=== PATIENT | female | born 1985 | race American Indian/Alaskan Native ===

== ENCOUNTER 2019-09-01 11:54 | Emergency (ER) | payer SELFPAY ==
[2019-09-01] MEDS ORDERED: BUTALB/ACETAMINOPHEN/CAFFEINE TAB PO ONE (12:57)
--- NOTE | 2019-09-01 13:59 | Emergency Department Report ---
ED Headache HPI - General Chief Complaint: Headache Stated Complaint: HEADACHE, BODY PAIN Time Seen by Provider: 09/01/19 12:37 Source: patient Exam Limitations: no limitations - History of Present Illness Initial Comments: This is a 34-year-old female history of migraine headache who presents today complaining of temporal throbbing aching type headache that is been going on for the past 1 week. She rates the pain about a 5 out of 10 intensity. patient states El usually takes Benadryl and some pain medication which helps but in the past 2 days, Benadryl is not helping to relieve the pain. She denies nausea vomiting blurry vision of the injuries or trauma to the head. Timing/Duration: 1 week Quality: mild, achy, throbbing Head Injury Location: temporal Associated Symptoms: denies symptoms. denies: facial pain, nausea/vomiting, nasal congestion, sinus infection Allergies/Adverse Reactions: Allergies No Known Allergies Allergy (Unverified 02/02/15 19:38) Home Medications: Ambulatory Orders Ibuprofen [Motrin 800 MG tab] 800 mg PO Q8HR PRN #20 tablet 02/02/15 Butalb/Acetamin/Caff 50-325-40 [Fioricet 50-325-40] 2 tab PO TID #30 tablet 09/01/19 ED Review of Systems ROS: Stated complaint: HEADACHE, BODY PAIN Other details as noted in HPI Comment: All other systems reviewed and negative ED Past Medical Hx - Past Medical History Previous Medical History?: Yes Hx Psychiatric Treatment: Yes (treated with Seroquel and Zoloft) Additional medical history: Hx of depression - Surgical History Past Surgical History?: No - Social History Smoking Status: Never Smoker Substance Use Type: Alcohol - Medications Home Medications: Home Medications Medication Instructions Recorded Confirmed Last Taken Type Ibuprofen [Motrin 800 MG tab] 800 mg PO Q8HR PRN #20 tablet 02/02/15 Unknown Rx Butalb/Acetamin/Caff 50-325-40 2 tab PO TID #30 tablet 09/01/19 Unknown Rx [Fioricet 50-325-40] ED Physical Exam - General Limitations: No Limitations General appearance: alert, in no apparent distress - Head Head exam: Present: atraumatic, normocephalic - Eye Eye exam: Present: normal appearance, PERRL - ENT ENT exam: Present: mucous membranes moist - Neck Neck exam: Present: normal inspection - Respiratory Respiratory exam: Present: normal lung sounds bilaterally. Absent: respiratory distress - Cardiovascular Cardiovascular Exam: Present: regular rate, normal rhythm. Absent: systolic murmur, diastolic murmur, rubs, gallop - GI/Abdominal GI/Abdominal exam: Present: soft, normal bowel sounds - Extremities Exam Extremities exam: Present: normal inspection - Back Exam Back exam: Present: normal inspection - Neurological Exam Neurological exam: Present: alert, oriented X3 - Psychiatric Psychiatric exam: Present: normal affect, normal mood - Skin Skin exam: Present: warm, dry, intact, normal color. Absent: rash ED Course Vital Signs 09/01/19 09/01/19 12:00 13:14 Temperature 98.2 F Pulse Rate 83 Respiratory 15 16 Rate Blood Pressure 114/39 O2 Sat by Pulse 99 Oximetry ED Medical Decision Making - Medical Decision Making This 34-year-old female presents with headache Patient noted to have a history of migraine headaches. Fioricet given in ED. patient states headache resolved prior to discharge. Patient had no neurological deficit or any signs of acute or respiratory distress. Discussed with patient to avoid trigger factors of the headache. Discussed follow-up with primary care physician. Vital signs are normal patient is in no acute distress. Critical care attestation.: If time is entered above; I have spent that time in minutes in the direct care of this critically ill patient, excluding procedure time. ED Disposition Clinical Impression: Headache, Migraine headache Disposition: DC-01 TO HOME OR SELFCARE Is pt being admited?: No Does the pt Need Aspirin: No Condition: Stable Instructions: Butalbital/Aspirin/Caffeine/Codeine (By mouth), Migraine Headache (ED), Acute Headache (ED) Additional Instructions: Make sure to follow up with the primary care physician as discussed. Take all your medications as you've been prescribed. If you have any worsening symptoms or develop new symptoms please return to ED immediately. Prescriptions: Butalb/Acetamin/Caff 50-325-40 [Fioricet 50-325-40] 2 tab PO TID #30 tablet Referrals: PRIMARY CARE, [Primary Care Provider] - 3-[address] [facility] [Outside] - 3-5 Days [facility] [Outside] - 3-5 Days [facility] [Outside] - 3-5 Days [facility] [Outside] - 3-5 Days Forms: Work/School Release Form(ED) Time of Disposition: 14:50
== END 2019-09-01 15:00 | disposition home or self-care (01) ==
LOC: ED 11:54
DX: R51 Headache (principal)
CPT/HCPCS: 99282

== ENCOUNTER 2021-07-21 08:20 | Emergency (ER) | payer SELFPAY ==
--- NOTE | 2021-07-21 08:49 | Emergency Department Report ---
ED Back Pain/Injury HPI - General Chief Complaint: Back Pain/Injury Stated Complaint: BACK PAIN Time Seen by Provider: 07/21/21 08:46 Source: patient Limitations: No Limitations - History of Present Illness Initial Comments: Patient is a 36-year-old that comes to the emergency room complaining of low back pain. She says that she has disc disease. She states that she sees her primary care from time to time and they give her muscle relaxers. She denies being on anything currently. She has no new fall or trauma. She denies dysuria, abdominal pain, nausea vomiting or diarrhea. Patient denies fever or chills. She denies any vaginal discharge. She states this is her usual back pain that radiates to her right leg. She has no positive straight leg raise test on exam She has no signs and symptoms of cauda equina. She is ambulatory, nonill and nontoxic on exam. MD Complaint: back pain -: year(s) Similar Symptoms Previously: Yes Place: home Radiation: none Severity: mild Quality: aching Consistency: intermittent Improves With: immobilization Worsens With: movement Associated Symptoms: denies other symptoms - Related Data Previous Rx's Medication Instructions Recorded Last Taken Type Cyclobenzaprine [Flexeril] 10 mg PO TID PRN #10 tablet 07/21/21 Unknown Rx Ibuprofen [Motrin] 800 mg PO Q8HR PRN #30 tablet 07/21/21 Unknown Rx Allergies Allergy/AdvReac Type Severity Reaction Status Date / Time No Known Allergies Allergy Verified 07/21/21 08:44 ED Review of Systems ROS: Stated complaint: BACK PAIN Other details as noted in HPI Comment: All other systems reviewed and negative ED Past Medical Hx - Past Medical History Hx of depression Surgical history: no surgical history LMP comments: none Family history: no significant family history - Social History Smoking Status: Never Smoker ED Back Pain Physical Exam - Exam General: Vital signs noted. No distress. Alert and acting appropriately. Back/Abdomen: No Abdominal Tenderness, No Perithoracic Tenderness, No Perilumbar Tenderness, No Sacroiliac Tenderness, No Flank Tenderness, No Straight Leg Raise Pain Neuro: Yes Normal Sensation, Yes Normal DTR's, Yes Normal Gait, No Motor Weakness ED Course Vital Signs 07/21/21 08:42 Temperature 98.2 F Pulse Rate 78 Respiratory 18 Rate Blood Pressure 120/64 O2 Sat by Pulse 100 Oximetry ED Medical Decision Making - Medical Decision Making Vital Signs 07/21/21 08:42 Temperature 98.2 F Pulse Rate 78 Respiratory 18 Rate Blood Pressure 120/64 O2 Sat by Pulse 100 Oximetry dc home with dc plan of care including diet, med, activity and follow up. She verbalizes understanding of dc plan of care - Differential Diagnosis a/c back pain Critical care attestation.: If time is entered above; I have spent that time in minutes in the direct care of this critically ill patient, excluding procedure time. ED Disposition Clinical Impression: Chronic back pain Disposition: 01 HOME / SELF CARE / HOMELESS Is pt being admited?: No Does the pt Need Aspirin: No Condition: Stable Instructions: Chronic Back Pain, [id number] Additional Instructions: meds as ordered today warm compresses/ baths follow up with pcp referral below Prescriptions: Cyclobenzaprine [Flexeril] 10 mg PO TID PRN #10 tablet PRN Reason: Muscle Spasm Ibuprofen [Motrin] 800 mg PO Q8HR PRN #30 tablet PRN Reason: Pain, Moderate (4-6) Referrals: SRINI VANCE MD [Staff Physician] - 3-5 Days Time of Disposition: 08:47
[2021-07-21 09:33] VITALS: BP 120/72
== END 2021-07-21 09:41 | disposition home or self-care (01) ==
LOC: ED 08:20
DX: G89.29 Other chronic pain (principal); M54.9 Dorsalgia, unspecified; F32.A Depression, unspecified
CPT/HCPCS: 99282